=== PATIENT | female | born 1970 | race Caucasian/White ===

== ENCOUNTER → 2017-10-13 17:13 | Outpatient (CLI) | payer OTHER, SELFPAY ==
--- NOTE | 2017-10-13 17:16 | HPBI_ITS ---
MAMMOGRAPHY - BILATERAL SCREENING REASON FOR EXAM: Female, 47 years old. Routine annual screening examination. PERTINENT HISTORY: Non-contributory. TECHNIQUE: Digital bilateral breast deepak (3D mammographic acquisition) in the CC and MLO projections. 2-D mediolateral oblique (MLO) and craniocaudad (CC) views of both breasts were obtained. CAD: Full Field Digital Mammography with Computer Added Detection was performed. COMPARISON: Comparison is made with prior study dated March 22, 2016 and February 21, 2014. FINDINGS: Breast Composition: There are scattered areas of fibroglandular density. There are no dominant masses or suspicious calcifications. No other significant abnormalities are identified. There has been no significant change since the prior study. HPBI/SCREENING MAMM (CAD), BILAT IMPRESSION: Stable bilateral screening mammogram. Yearly follow-up mammogram recommended. (A) ASSESSMENT CATEGORY: BIRADS Category 1: Negative. A letter regarding these results will be sent to the patient by the facility within 30 days. Approximately 10% of breast cancers are not detected by mammography. A normal mammogram should not delay biopsy of a clinically suspicious abnormality. [id number] Electronically Signed: Brendon Fischer MD at 8:45 EDT Tel [phone], Service support ,
== END ==
PROVIDERS: Family Provider Family Medicine; PCP Family Medicine; Visit Provider Obstetrics & Gynecology
DX: Z12.31 Encounter for screening mammogram for malignant neoplasm of breast (principal)
CPT/HCPCS: 77063; 77067

== ENCOUNTER 2018-10-09 18:30 | Outpatient (RCR) | payer OTHER, SELFPAY ==
--- NOTE | 2018-09-04 18:28 | HP.PTEVAL ---
Patient's Visit Information LETTY STOLL is a 48 year old F referred to Physical Therapy by Carmen Mcguire with a diagnosis of 3-PART FRACTURE SURGICAL NECK OF HUMERUS OF LEFT HUMERUS. Date of Evaluation: 09/04/18 Physical Therapist: Chivo Roberts, PT, Cert MDT, OCS - Visit Plan Frequency: 2x /Week Duration: 6-8WEEKS Plan: INTAILLY FOCUS ON ROM -PROM/AAROM,MANUAL THERAPY. PROGRESS TO STRENGTH RTC/POSTURE EX' S MARISSA. CP/MHP - Subjective Findings: This 48 y/o female presenst to physical therapy 3 part surgical humerus fracture. Patiemt DOI Jul 05 fell with bolth arms out stretched caused nondisplaced humerus fx. Patient to [facility] ,then next day seen [facility] . Patient was placed in sling 4weeks ,then removed sling. Seen MD last on 08/15/18 and start PT,x-rays where done which showed healing well.. Patient RTW as a Denist. Denies parathesia/tingling. Pain affects sleeping at night.Pain affects affect ADL'S ,self hygine -combing hair,housework tasks with activities above 90 degrees. Patient fracture of shoulder and QOL and job demands/housework tasks. VOCATION: Denist. SOCAIL: - Pain Left Shoulder Pain Intensity (Out of 10): 7 Pain Intensity Range: N/A - Objective POSTURE: mild foward posture. NEURO: intact. PALAPTION: unremarkable. PROM: shoulder flexion 90 degrees ,abduction in scapular postion 80 degrees,ER 60 degrees,ER 50 degrees. CAPASULAR RETRICTION: mod tight all planes. MMT: unable to to ROM restriction otherwise subscapularis /infraspinatous 4-/5 - Goals Goal 1:: Independant with HEP Goal Time Frame: 6-8 Weeks Goal 2:: Decrease pain left shoulder by 70 % or greater to improve function Goal 3:: Patient to improve AROM shoulder flexion/abduction 150 degrees ,ER 85 and IR reach behind back L1 to improve activities above 90 degrees. Goal Time Frame: 6-8 Weeks Goal 4:: Patient to increase strength of RTC 4/5 and deltoid 4-/5 to improve function with activities above 90 degrees. Goal Time Frame: 6-8 Weeks Goal 5:: Patient to improve quick DASH score by 10 points or greater to improve QOL Goal Time Frame: 6-8 Weeks - Rehabilitation Potential Physical Therapy Diagnosis: This 48 y/o female sustained surgerical neck 3 parts fracture Dec 5 with poor ROM,strength,impairs ADL'S and use of left arm for function and activitos above 90 degrees as well as job demnads and housework tasks. Rehabilitation Potential: Good - Anticipated Interventions Patient/Client Instruction: Educate patient on: Condition, Plan of Care For the Purpose of:: To decrease pain, To increase ROM, To improve nutrient delivery to tissue, To increase oxygenation perfusion, To improve muscle performance and motor function, To improve ability to perform ADL's, To increase tolerance to activity/condition/position, To improve performance and independence with ADL's, To improve ability of physical actions for home/community/work/leisure, To improve health of tissue, To decrease soft tissue restriction, To increase flexibility/ROM, To improve health and function, To improve ability to perform tasks related to life management Therapeutic Exercise to Include: Strength training, Postural training, Flexibilty training, Passive ROM, Active ROM Comment: RTC/SCAPULAR For the Purpose of:: To decrease pain, To increase ROM, To improve muscle performance and motor function, To improve ability to perform ADL's, To increase tolerance to activity/condition/position, To improve performance and independence with ADL's, To improve ability of physical actions for home/community/work/leisure, To improve health of tissue, To decrease soft tissue restriction, To increase flexibility/ROM, To assume or resume ADL's, To improve ability to perform tasks related to life management Manual Therapy Techniques to Include: Mobilization, Passive ROM Comment: SHOULDER For the Purpose of:: To decrease pain, To decrease swelling/inflammation, To improve nutrient delivery to tissue, To increase oxygenation perfusion, To improve health of tissue, To decrease soft tissue restriction, To increase flexibility/ROM TENS: Yes IF ES: Yes Cryotherapy (ice pack, ice massage): Yes Thermo therapy (hot pack): Yes For the Purpose of:: To decrease pain, To increase ROM, To improve nutrient delivery to tissue, To increase oxygenation perfusion, To improve health of tissue, To decrease soft tissue restriction Thank you for the opportunity to evaluate your patient. For Medicare and Medicare HMO plans, please review the plan of care and approve it. It will need to be FAXED BACK to us at [phone] for Medicare purposes. For Medicare only, by signing this I certify the plan of care. Please let me know if there are questions or concerns regarding this plan of care. Physician Signature: Date:
--- NOTE | 2019-01-22 10:09 | HP.PTDCSUM ---
HP - PT D/C Summary It has been my pleasure to treat LETTY STOLL under orders from Carmen Maynor, for the diagnosis of 3-PART FRACTURE SURGICAL NECK OF HUMERUS OF LEFT HUMERUS for a total of 5 visit(s). Discharge Date: Please see the following information for a summary of their discharge status. - Subjective Subjective: Patient been on vocation ,stiiff. didnt ex;s ,may have regressed - Pain Left Shoulder Pain Intensity (Out of 10): 0 - Objective Objective/Function: MARISSA TX WELL WITH ROM WITH AROM SHOULDER FLEXION. 110 DEGRRES,PROM ER 77 DEGRRES - Goals Goal 1:: Independant with HEP Goal 2:: Decrease pain left shoulder by 70 % or greater to improve function Goal 3:: Patient to improve AROM shoulder flexion/abduction 150 degrees ,ER 85 and IR reach behind back L1 to improve activities above 90 degrees. Goal 4:: Patient to increase strength of RTC 4/5 and deltoid 4-/5 to improve function with activities above 90 degrees. Goal 5:: Patient to improve quick DASH score by 10 points or greater to improve QOL - Plan Plan: INTAILLY FOCUS ON ROM -PROM/AAROM,MANUAL THERAPY. PROGRESS TO STRENGTH RTC/POSTURE EX' S MARISSA. CP/MHP - D/C Information If there are questions or concerns regarding this patient's physical therapy, please feel free to call me at [phone]. Thank you for the referral of this patient. Sincerely, Chivo Roberts, PT, Cert MDT, OCS
== END 2018-10-09 19:00 | disposition home or self-care (01) ==
LOC: PT 18:30
PROVIDERS: Family Provider Family Medicine; PCP Family Medicine; Referring Provider Physician Assistant; Visit Provider Physician Assistant
DX: S42.232D 3-part fracture of surgical neck of left humerus, subsequent encounter for fracture with routine healing (principal)
CPT/HCPCS: 97110; 97140; 97161

== ENCOUNTER → 2019-01-09 10:12 | Outpatient (CLI) | payer OTHER, SELFPAY ==
--- NOTE | 2019-01-09 16:30 | BI_ITS ---
MAMMOGRAPHY - BILATERAL SCREENING REASON FOR EXAM: Female, 48 years old. Routine annual screening examination. PERTINENT HISTORY: Non-contributory. TECHNIQUE: Digital bilateral breast art (3D mammographic acquisition) in the CC and MLO projections. 2-D mediolateral oblique (MLO) and craniocaudad (CC) views of both breasts were obtained. CAD: Full Field Digital Mammography with Computer Added Detection was performed. COMPARISON: Comparison is made with prior study dated October 13, 2017 and March 22, 2016. FINDINGS: Breast Composition: There are scattered areas of fibroglandular density. There are no dominant masses or suspicious calcifications. No other significant abnormalities are identified. There has been no significant change since the prior study. BI/SCREEN MAMM (CAD) W/ART BILAT IMPRESSION: Stable bilateral screening mammogram. Yearly follow-up mammogram recommended. (A) ASSESSMENT CATEGORY: BIRADS Category 1: Negative. A letter regarding these results will be sent to the patient by the facility within 30 days. Approximately 10% of breast cancers are not detected by mammography. A normal mammogram should not delay biopsy of a clinically suspicious abnormality. [id number] Electronically Signed: Brendon Fischer, at 8:15 EDT , Service support ,
[2019-01-11 10:07] LABS: HPV Reflexed? NOT INDICATED
== END ==
PROVIDERS: Family Provider Family Medicine; PCP Family Medicine; Referring Provider Obstetrics & Gynecology; Visit Provider Obstetrics & Gynecology
DX: Z12.31 Encounter for screening mammogram for malignant neoplasm of breast (principal); Z12.4 Encounter for screening for malignant neoplasm of cervix
CPT/HCPCS: 77063; 77067; 88175; G0145

== ENCOUNTER → 2021-01-23 15:00 | Outpatient (CLI) | payer OTHER, SELFPAY ==
--- NOTE | 2021-01-23 15:03 | BI_ITS ---
MAMMOGRAPHY - BILATERAL SCREENING REASON FOR EXAM: Female, 50 years old. Routine annual screening examination. PERTINENT HISTORY: Non-contributory. TECHNIQUE: Digital bilateral breast art (3D mammographic acquisition) in the CC and MLO projections. 2-D mediolateral oblique (MLO) and craniocaudad (CC) views of both breasts were obtained. CAD: Full Field Digital Mammography with Computer Added Detection was performed. COMPARISON: Comparison is made with prior study dated 01/09/2019 and 10/13/2017. FINDINGS: Breast Composition: There are scattered areas of fibroglandular density. There are no dominant masses or suspicious calcifications. No other significant abnormalities are identified. There has been no significant change since the prior study. BI/SCRN MAMM (CAD)W/ART BILAT IMPRESSION: Stable bilateral screening mammogram. Yearly follow-up mammogram recommended. (A) ASSESSMENT CATEGORY: BIRADS Category 1: Negative. A letter regarding these results will be sent to the patient by the facility within 30 days. Approximately 10% of breast cancers are not detected by mammography. A normal mammogram should not delay biopsy of a clinically suspicious abnormality. [id number] Electronically Signed: Brendon Fischer MD at 9:24 EDT , Service support ,
== END ==
PROVIDERS: Referring Provider Student in an Organized Health Care Education/Training Program; Visit Provider Student in an Organized Health Care Education/Training Program
DX: Z12.31 Encounter for screening mammogram for malignant neoplasm of breast (principal)
CPT/HCPCS: 77063; 77067

== ENCOUNTER → 2023-02-14 | Outpatient (CLI) | payer OTHER, SELFPAY ==
[2023-02-14 10:35] LABS: Microalbumin,Random Urine 23.1 mg/L (NO RANGE EST.)
[2023-02-14 11:19] LABS: ALB/GLOB Ratio 0.8 RATIO (0.9-2.4); AST(SGOT) 15 U/L (15-37); Alanine Aminotransfer ALT/SGPT 23 U/L (13-56); Albumin, Serum 3.4 g/dL (3.2-5.0); Alkaline Phosphatase 126 U/L (45-117); Anion Gap 4 (5-15); BUN 8 mg/dL (7-18); BUN/Creat Ratio 12.4 RATIO (10-20); Calcium,Total 9.3 mg/dL (8.5-10.1); Chloride 105 mmol/L (98-107); Cholesterol 212 mg/dL (200); Creatinine, Serum 0.64 mg/dL (0.55-1.02); EST Glomerular Filtration Rate 102 mL/min (>60); Est Glom Filt Rate - Afr Amer 124 mL/min (>60); Globulin 4.3 g/dL (2.2-4.2); Glucose 140 mg/dL (74-106); High Density Lipoprotein 59 mg/dL; Protein, Total 7.7 g/dL (6.4-8.2); Sodium Level 137 mmol/L (136-145); Triglycerides 111 mg/dL; Very Low Density Lipoprotein 22 mg/dL (5-40)
== END | disposition home or self-care (01) ==
LOC: LAB 09:23
PROVIDERS: Referring Provider Nurse Practitioner Family; Visit Provider Nurse Practitioner Family
DX: E11.9 Type 2 diabetes mellitus without complications (principal)
CPT/HCPCS: 36415; 80053; 80061; 82043; 82306; 82570; 84443